=== PATIENT | male | born 1990 | race Caucasian/White ===

== ENCOUNTER 2016-10-10 14:31 | Emergency (ER) | payer OTHER ==
[~2016-10-10] VITALS: Ht 172.7 cm; Wt 81.6 kg
[2016-10-10 14:36] VITALS: BP 143/86
--- NOTE | 2016-10-10 15:18 | ED GENERAL ADULT ---
History of Present Illness General Chief Complaint: General Adult Stated Complaint: NEEDS METHADONE Source: patient Exam Limitations: no limitations Vital Signs & Intake/Output Vital Signs & Intake/Output Vital Signs Date Time Temp Pulse Resp B/P B/P Pulse O2 O2 Flow FiO2 Mean Ox Delivery Rate 10/10 1436 96.0 62 20 143/86 99 Room Air Allergies Coded Allergies: No Known Allergies (10/10/16) Reconcile Medications Clonidine HCl 0.1 MG TABLET 1 TAB PO Q8P WITHDRAWL Metoclopramide HCl (Reglan) 10 MG TABLET 1 TAB PO 4 TIMES/DAY PRN NAUSEA 30 minutes before meals and bedtime Triage Note: PT TO ED REQUESING DOSE OF METHADONE. TAKES 50MG DAILY. MISSED DOSE DUE TO OVER SLEEPING THIS AM. Triage Nurses Notes Reviewed? yes HPI: Patient overslept this morning and missed his methadone appointment. Patient states that he was told by the clinic that if he ever missed a dose to just go to the emergency room. Patient denies any suicidal homicidal ideations. Patient has no current complaints. Past History Travel History Traveled to [place] past 21 day No Medical History Any Pertinent Medical History? see below for history Psychiatric: on methadone Surgical History Surgical History: non-contributory Psychosocial History What is your primary language Estonian Tobacco Use: Quit >30 days ago ETOH Use: denies use Illicit Drug Use: ON METHADONE FOR PRIOR OPIATE ABUSE Family History Hx Contributory? No Review of Systems Review of Systems Constitutional: Reports: no symptoms. EENTM: Reports: no symptoms. Respiratory: Reports: no symptoms. Cardiovascular: Reports: no symptoms. GI: Reports: no symptoms. Musculoskeletal: Reports: no symptoms. Neurological/Psychological: Reports: no symptoms. Immunologic/Allergic: Reports: no symptoms. Physical Exam Physical Exam General Appearance: well developed/nourished, alert, awake, anxious Head: atraumatic, normal appearance Eyes: Bilateral: PERRL, EOMI. Respiratory: normal breath sounds, chest non-tender, no respiratory distress, lungs clear Cardiovascular: regular rate/rhythm, normal peripheral pulses Neurologic/Psych: no motor/sensory deficits, awake, alert, oriented x 3, normal gait, normal mood/affect Core Measures ACS in differential dx? No CVA/TIA Diagnosis: No Severe Sepsis Present: No Septic Shock Present: No Progress Differential Diagnoses I considered the following diagnoses in my evaluation of the patient: [Missed methadone] Plan of Care: Patient given a prescription for clonidine and Reglan as needed. Patient is unhappy that he did not get methadone here in the emergency room. Initial ED EKG: none Departure Departure Disposition: HOME OR SELF CARE Condition: Stable Clinical Impression Primary Impression: Opiate withdrawal Referrals: PATIENT HAS NO PRIMARY CARE DR (PCP/Family) Additional Instructions: FOLLOW UP WITH THE METHADONE CLINIC Departure Forms: Customer Survey General Discharge Information Prescriptions: Current Visit Scripts Clonidine HCl 1 TAB PO Q8P #10 TAB Metoclopramide HCl (Reglan) 1 TAB PO 4 TIMES/DAY PRN NAUSEA #20 TAB 30 minutes before meals and bedtime Critical Care Note Critical Care Note Critical Care Time: non-applicable
[2016-10-10] MEDS ORDERED: CLONIDINE HCL0.1 MG PO (15:19)
[2016-10-10] MEDS ORDERED: REGLAN10 M1 PO (15:19)
== END 2016-10-10 15:45 ==
LOC: ERH 14:31
DX: F11.23 Opioid dependence with withdrawal (principal)